=== PATIENT | female | born 2005 | race Caucasian/White ===

== ENCOUNTER 2023-03-27 09:25 | Day surgery (SDC) | payer OTHER, SELFPAY ==
[2023-03-25 13:09] VITALS: BMI 22.9
[2023-03-27] VITALS (9 sets, daily range): BP systolic 81–117; BP diastolic 46–78; PULSE 47–68; RESP 12–18; TEMP 35.7–36.2; O2SAT 97–100; BMI 22.9
[2023-03-27] MEDS: LACTATED RINGERS 1,000 ML 100 ML IV (09:54)
--- NOTE | 2023-03-27 10:18 | PM.GYNHP.1 ---
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 [facility] Medical History (Updated 03/30/22 @ 18:25 by Deborah Loyd) Allergies (~2014) Anxiety (~2014) Depression (~2019) Wears glasses Family History (Updated 03/30/22 @ 18:28 by Deborah Loyd) Mother Mental health problem Grandfather History of heart disease Hyperlipidemia Mental health problem Stroke Grandmother Colon cancer Mental health problem Grandfather Hypertension Mental health problem Stroke Grandmother ALS (amyotrophic lateral sclerosis) Social History household members: family Smoking Status: Never smoker alcohol intake: never Meds Home Medications and Allergies Home Medications Medication Instructions Recorded Confirmed Type Lamictal ODT 100 mg sublingual 3XD dep 03/27/23 03/27/23 History Allergies Allergy/AdvReac Type Severity Reaction Status Date / Time No Known Allergies Allergy Uncoded 03/27/23 09:36 Exam Vital Signs (past 8 hours): - 03/27/23 09:43 Temperature 97.2 F L Pulse Rate 64 Respiratory Rate 18 Blood Pressure 117/78 Pulse Oximetry 100 Oxygen Delivery Method Room Air Oxygen Delivery Method Room Air Narrative Exam Narrative: HEENT: No thyromegaly, no anterior cervical or supraclavicular lymphadenopathy. Lungs:Clear to auscultation bilaterally, no wheezes. Cardiovascular: Regular rate and rhythm, no murmurs, rubs, or gallops. Abdomen: No scars. No hepatosplenomegaly. No masses palpable. 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 The risks including bleeding and infection. She understands these risks and agrees to proceed. A full par Q was held and consent form was signed. Time Spent With Patient Time with patient: less than 30 minutes
--- NOTE | 2023-03-27 10:21 | PM.PREOP ---
Pre-operative Note COVID-19 Criteria for continued procedure: Non-surgical alternatives not available or appropriate per current SOC Interval Note History & Physical reviewed/Exam performed by Physician: Yes Changes to H&P: No H&P completed within 30 days and has changed as indicated here:: 03/27/23
--- NOTE | 2023-03-27 10:47 | SUR.OPER ---
Lithotomy on padded OR bed, head on pillow, arms secured on padded arm boards at <90 degrees abduction. Legs secured in padded yellow fins stirrups.
[2023-03-27] MEDS: EPINEPHRINE 0.1 MG INJ (10:54)
[2023-03-27] MEDS: LIDOCAINE 1% INJ (10:54)
--- NOTE | 2023-03-27 11:23 | PM.GYNOP.1 ---
Operative Date/Time/Diagnoses Date of procedure: 03/27/23 Time of procedure: 11:23 Pre-op diagnosis: Imperforate hymen Procedure & Clinicians Procedure: Procedures Operation Date: 03/27/23 10:30 Actual Procedure Side Surgeon p Incision of Imperforate hymen opening Lula Weston MD Indications: Imperforate hymen Surgeon: Lula Weston Anesthesia Type: MAC +/- and Local Operative Notes Findings: Two small slits in the hymen. Hypertrophic tissue from 4-8 o'clock Closure Type: primary Specimen(s): none Estimated blood loss (mL): 3 Blood products transfused: none Procedure in detail: After informed consent was obtained, the patient was taken to the operating room where she was placed in the dorsal supine position. After MAC was obtained, the patient was placed in the dorsal lithotomy position and was prepped and draped in the usual sterile fashion. 3 cc of 0.25% marcaine were injected in the hymen. The bridge between the 2 slits was excised using cautery. 6 cc of 0.25% marcaine were injected into the hypertrophic tissue of the posterior hymen. This area was excised using a #15 blade. Simple interrupted sutures with 3-0 chromic were used to close the area. Hemostasis was achieved. Sponge, lap and instrument counts were correect x 2. The patient tolerated the procedure well and was taken to PACU in stable condition. Complications: none Post-operative Condition: stable Disposition: PACU Plan for aftercare: Home after recovery
== END 2023-03-27 11:59 | disposition home or self-care (01) ==
PROVIDERS: Referring Provider Obstetrics & Gynecology; Visit Provider Obstetrics & Gynecology
PROC: (CPT 56700; principal; 2023-03-27 10:30)
DX: Q52.3 Imperforate hymen (principal)
CPT/HCPCS: 56442; J0171; J2704; J3010